=== PATIENT | male | born 1985 | race African-American/Black ===

== ENCOUNTER 2019-09-22 09:15 | Emergency (ER) | payer MEDICAID, OTHER ==
[~2019-09-22] VITALS: Ht 175.3 cm; Wt 77.1 kg
[2019-09-22] MEDS ORDERED: SULFACETAMIDE SOD 10% OPHT DR 15 ML BOTTLE OP ONE (09:30)
[2019-09-22] MEDS ORDERED: SULFACETAMIDE SOD 10% OPHT DR 15 ML BOTTLE ONE (09:32)
--- NOTE | 2019-09-22 09:34 | NUR ---
Patient discharged to home in stable conditon. Written and verbal after care instructions given. Patient verbalizes understanding of instructions.
== END 2019-09-22 09:36 | disposition home or self-care (01) ==
LOC: ER 09:17
DX: H10.9 Unspecified conjunctivitis (principal)
CPT/HCPCS: A4663